=== PATIENT | female | born 1940 | race Caucasian/White ===

== ENCOUNTER 2019-04-22 11:15 | Outpatient (CLI) | payer MEDICARE, OTHER ==
--- NOTE | 2019-04-22 16:14 | RAD ---
CHEST TWO VIEWS: 04/22/19 No prior films were available for comparison. The heart is borderline in size. There is no congestive change, pleural effusion, or edema. The lungs are mildly hyperexpanded but clear. No infiltrate was seen. No acute bony changes were noted. IMPRESSION: Borderline heart size. Mildly hyperinflated lungs. POS: HOME
== END 2019-04-22 11:16 | disposition home or self-care (01) ==
LOC: BURRAD 11:15
PROVIDERS: ATTEND Physician Assistant
DX: R05 Cough (principal); R91.8 Other nonspecific abnormal finding of lung field
CPT/HCPCS: 71046

== ENCOUNTER 2021-07-20 10:46 | Outpatient (CLI) | payer MEDICARE, OTHER | END 2021-07-20 10:47 | disposition home or self-care (01) | LOC: BURRAD 10:46 | PROVIDERS: ATTEND Physician Assistant | DX: M54.42 Lumbago with sciatica, left side (principal); M54.41 Lumbago with sciatica, right side; G89.29 Other chronic pain; M43.16 Spondylolisthesis, lumbar region; M47.816 Spondylosis without myelopathy or radiculopathy, lumbar region; M47.817 Spondylosis without myelopathy or radiculopathy, lumbosacral region; M43.17 Spondylolisthesis, lumbosacral region; M41.9 Scoliosis, unspecified | CPT/HCPCS: 72100 ==

== ENCOUNTER 2021-08-03 08:52 | Outpatient (CLI) | payer MEDICARE, OTHER ==
[2021-08-03] MEDS ORDERED: Iopamidol 370 76% 100 ML VIAL FS ONE (08:53)
== END 2021-08-03 08:53 | disposition home or self-care (01) ==
LOC: BURCT 08:52
PROVIDERS: ATTEND Physician Assistant
DX: R19.06 Epigastric swelling, mass or lump (principal); K57.10 Diverticulosis of small intestine without perforation or abscess without bleeding
CPT/HCPCS: 74177; Q9967